=== PATIENT | female | born 1990 | race Caucasian/White ===

== ENCOUNTER 2017-03-26 16:26 | Emergency (ER) | payer OTHER ==
[2017-03-26 17:49] LABS: BASOPHILS % (AUTO) 0.3 %; EOSINOPHILS # (AUTO) 0.1 10^3/uL (0.0-0.7); EOSINOPHILS % (AUTO) 0.9 %; HCT - HEMATOCRIT 39.5 % (37.0-47.0); HGB - HEMOGLOBIN 13.5 g/dL (12.0-16.0); LYMPHOCYTES # (AUTO) 2.6 10^3/uL (1.5-3.5); LYMPHOCYTES % (AUTO) 26.8 %; MEAN CORPUSCULAR HGB CONC 34.3 g/dL (32.0-36.0); MEAN CORPUSCULAR VOLUME 90.4 fL (81.0-99.0); MEAN PLATELET VOLUME 8.4 fL (7.9-10.8); MONOCYTES # (AUTO) 0.6 10^3/uL (0.0-1.0); NEUTROPHILS # (AUTO) 6.3 10^3/uL (1.5-6.6); RED BLOOD COUNT 4.36 10^6/uL (4.20-5.40); RED CELL DISTRIBUTION WIDTH 12.8 % (12.0-15.0); UNCORRECTED WHITE BLOOD COUNT 9.5 x10^3/uL; WHITE BLOOD COUNT 9.5 x10^3/uL (4.8-10.8)
[2017-03-26 17:57] LABS: ALBUMIN/GLOBULIN RATIO 1.8 (1.0-2.2); BILIRUBIN,TOTAL 0.3 mg/dL (0.2-1.0); CALCIUM 9.3 mg/dL (8.5-10.3); CREATININE 0.7 mg/dL (0.4-1.0); POTASSIUM 4.1 mmol/L (3.5-5.0); TOTAL PROTEIN 7.3 g/dL (6.7-8.2)
[2017-03-26] MEDS ORDERED: SODIUM CHLORIDE 0.9% 1,000 ML IV ONE (18:19)
--- NOTE | 2017-03-26 18:19 | ED Physician Documentation ---
History of Present Illness - Stated complaint Stated Complaint: DIZZINESS/5 WKS - Chief complaint Chief Complaint: Neuro - History obtained from History obtained from: Patient, Family - History of Present Illness Timing: How many days ago (several) Pain level max: 0 Pain level now: 0 Improved by: Lying down Worsened by: Standing up - Additonal information Additional information: Patient is a 26-year-old female who is approximately 5 weeks , states that she has been lightheaded and dizzy upon standing, resolves with stopping moving or sitting down. Has been mildly nauseated but no vomiting. No diarrhea. No abdominal pain. No vaginal bleeding. States has not been eating and drinking quite as well as usual. Review of Systems Constitutional: denies: Fever, Chills Ears: denies: Ear pain Nose: denies: Rhinorrhea / runny nose, Congestion Throat: denies: Sore throat Cardiac: denies: Chest pain / pressure Respiratory: denies: Cough GI: denies: Abdominal Pain, Nausea, Vomiting, Diarrhea Skin: denies: Rash Musculoskeletal: denies: Neck pain, Back pain Neurologic: denies: Focal weakness, Numbness, Confused, Altered mental status, Headache PD PAST MEDICAL HISTORY - Past Medical History Past Medical History: No - Past Surgical History Past Surgical History: Yes - Present Medications Home Medications: Ambulatory Orders Medication Instructions Recorded Confirmed Pnv95/Ferrous Fumarate/FA 1 tab PO DAILY 08/21/14 03/26/17 [ Multivitamins Tablet] Progesterone,Micronized 100 mg PO DAILY PM 03/26/17 03/26/17 [Progesterone] - Allergies Allergies/Adverse Reactions: Allergies Allergy/AdvReac Type Severity Reaction Status Date / Time tomatoes Allergy Anaphylaxis Uncoded 03/26/17 16:50 - Living Situation Living Situation: reports: With spouse/s.o. Living Arrangement: reports: At home - Social History Does the pt smoke?: No Smoking Status: Never smoker Does the pt drink ETOH?: No Does the pt have substance abuse?: No - Immunizations Immunizations are current?: No Immunizations: TDAP >10years/unknown PD ED PE NORMAL - Vitals Vital signs reviewed: Yes - General General: Alert and oriented X 3, No acute distress - HEENT HEENT: PERRL, EOMI, Pharynx benign, Other (Dry lips) - Neck Neck: Supple, no meningeal sign - Cardiac Cardiac: RRR - Respiratory Respiratory: No respiratory distress, Clear bilaterally - Abdomen Abdomen: Soft, Non tender, Non distended - Derm Derm: Warm and dry, No rash - Extremities Extremities: No edema, No calf tenderness / cord - Neuro Neuro: Alert and oriented X 3 - Psych Psych: Normal mood, Normal affect Results - Vitals Vitals: Vital Signs - 24 hr 03/26/17 03/26/17 03/26/17 16:43 18:39 18:45 Temperature 36.3 C L 36.2 C L Heart Rate 89 76 Heart Rate [ 97 Sitting] Heart Rate [ 100 Standing] Heart Rate [ 83 Supine] Respiratory 16 15 Rate Blood Pressure 97/60 103/56 L Blood Pressure 118/75 [Sitting] Blood Pressure 116/72 [Standing] Blood Pressure 106/58 L [Supine] O2 Saturation 100 99 03/26/17 19:31 Temperature Heart Rate 77 Heart Rate [ Sitting] Heart Rate [ Standing] Heart Rate [ Supine] Respiratory 18 Rate Blood Pressure 107/58 L Blood Pressure [Sitting] Blood Pressure [Standing] Blood Pressure [Supine] O2 Saturation 100 Oxygen O2 Source Room air - EKG (time done) 1826 Rate: Rate (enter#) (81) Rhythm: NSR [place]: Normal Intervals: Normal SD QRS: Normal Ischemia: Normal ST segments - Labs Labs: Laboratory Tests 03/26/17 03/26/17 03/26/17 17:37 17:37 18:22 WBC 9.5 RBC 4.36 Hgb 13.5 Hct 39.5 MCV 90.4 MCH 31.0 MCHC 34.3 RDW 12.8 Plt Count 212 MPV 8.4 Neut # 6.3 Lymph # 2.6 [place] # 0.6 Eos # 0.1 Baso # 0.0 Absolute Nucleated RBC 0.00 Nucleated RBC % 0.0 Sodium 135 Potassium 4.1 Chloride 104 Carbon Dioxide 24 Anion Gap 7.0 BUN 13 Creatinine 0.7 Estimated GFR (MDRD) 101 Glucose 84 Calcium 9.3 Total Bilirubin 0.3 AST 15 ALT 15 Alkaline Phosphatase 32 L Total Protein 7.3 Albumin 4.7 Globulin 2.6 Albumin/Globulin Ratio 1.8 Lipase 37 Urine Color YELLOW Urine Clarity CLEAR Urine pH 6.0 Ur Specific [place] 1.010 Urine Protein NEGATIVE Urine Glucose (UA) NEGATIVE Urine Ketones NEGATIVE Urine Occult Blood NEGATIVE Urine Nitrite NEGATIVE Urine Bilirubin NEGATIVE Urine Urobilinogen 0.2 (NORMAL) Ur Leukocyte Esterase NEGATIVE Ur Microscopic Review NOT INDICATED Urine Culture Comments NOT INDICATED Urine HCG, Qual POSITIVE PD MEDICAL DECISION MAKING - ED course Complexity details: reviewed results, re-evaluated patient, considered differential, d/w patient, d/w family ED course: Patient is a 26-year-old female, who is approximately 5-1/2 weeks , presents with near syncope upon standing. Has not actually lost consciousness. She appears dehydrated clinically, given IV fluids and feels significantly better. She is able to stand and ambulate without any dizziness. Bedside ultrasound reveals a IUP with a gestational sac of approximately 6 week 1 day, unable to find a heart rate at this time, will follow up with her doctor for a formal ultrasound. Patient counseled regarding signs and symptoms for which I believe and urgent re-evaluation would be necessary. Patient with good understanding of and agreement to plan and is comfortable going home at this time This document was made in part using voice recognition software. While efforts are made to proofread this document, sound alike and grammatical errors may occur. Departure - Departure Disposition: 01 Home, Self Care Clinical Impression: Dehydration Qualifiers: Weeks of gestation: less than 8 weeks Qualified Code(s): Z3A.01 - Less than 8 weeks gestation of Condition: Good Instructions: ED Dehydration Follow-Up: your,doctor in 1 week [Other] Comments: Return if you worsen. Drink plenty of fluids. Discharge Date/Time: 03/26/17 20:24
[2017-03-26 18:55] LABS: BILIRUBIN,URINE NEGATIVE (NEGATIVE)
[2017-03-26 18:58] LABS: HCG UR QUAL POSITIVE; UA CHARGE (STRIP ONLY) YES; UR CULTURE IF IND NOT INDICATED
[2017-03-26 19:31] VITALS: BP 107/58
== END 2017-03-26 20:24 | disposition home or self-care (01) ==
LOC: ED 16:26
DX: O26.891 Other specified pregnancy related conditions, first trimester (principal); E86.0 Dehydration; Z3A.01 Less than 8 weeks gestation of pregnancy
CPT/HCPCS: 36415; 80053; 81001; 81003; 81025; 83690; 85025; 87086; 93005; 96360; 99283; 99284

== ENCOUNTER 2017-04-20 18:23 | Outpatient (CLI) | payer OTHER | END 2017-04-20 18:24 | disposition home or self-care (01) | LOC: LAB 18:23 | PROVIDERS: ATTEND Midwife | DX: O20.0 Threatened abortion (principal) | CPT/HCPCS: 36415; 84144 ==

== ENCOUNTER 2017-11-26 14:27 | Outpatient (CLI) | payer OTHER ==
--- NOTE | 2017-11-26 15:47 | Ultrasound Report ---
Procedure Date: 11/26/2017 Accession Number: [id number] / [id number] Procedure: US - OB Limited CPT Code: FULL RESULT: EXAM: LIMITED OBSTETRICAL ULTRASOUND OB Limited CLINICAL HISTORY: Term gestation, assess MOLLY COMPARISON: None. TECHNIQUE: Real time scanning by the assembler for puller over hand was saved static images reviewed DATING: Established EGA 40 weeks 4 days with GRABIEL 11/22/2017. GENERAL EVALUATION Arita . Cardiac activity: 133 bpm. movement: Visualized. Presentation: Vertex. Placenta: Posterior position. Amniotic fluid: Normal. MOLLY 21.8 cm. MVP 5.9 cm. IMPRESSION: 1. Arita intrauterine in vertex presentation. heart rate 133 BPM. MOLLY 21.8 cm. RADIA
== END 2017-11-26 14:28 | disposition home or self-care (01) ==
LOC: DI 14:27
PROVIDERS: ATTEND Midwife
DX: O48.0 Post-term pregnancy (principal)
CPT/HCPCS: 76815

== ENCOUNTER 2018-02-17 16:56 | Outpatient (CLI) | payer OTHER ==
--- NOTE | 2018-02-18 01:40 | Ultrasound Report ---
Reason: GENERALIZED ABDOMINAL PAIN Procedure Date: 02/17/2018 Accession Number: [id number] / [id number] Procedure: US - Abdomen Limited CPT Code: FULL RESULT: EXAM: ABDOMEN ULTRASOUND LIMITED, ABDOMINAL WALL EXAM DATE: 02/17/2018 05:35 PM. CLINICAL HISTORY: pain. Abdominal rectus diastases. Evaluate for hernia. Pain. COMPARISON: None. TECHNIQUE: Real-time scanning was performed with static images obtained. Images acquired with and without Valsalva. FINDINGS: No mass, adenopathy or collection. No anterior abdominal wall hernia. IMPRESSION: No abdominal wall hernia. RADIA
== END 2018-02-17 16:57 | disposition home or self-care (01) ==
LOC: DI 16:56
PROVIDERS: ATTEND Nurse Practitioner Family
DX: R10.84 Generalized abdominal pain (principal); M62.08 Separation of muscle (nontraumatic), other site
CPT/HCPCS: 76705

== ENCOUNTER 2020-03-21 13:40 | Outpatient (CLI) | payer OTHER ==
--- NOTE | 2020-03-22 12:02 | Ultrasound Report ---
PROCEDURE: Head or Neck Soft Tissue INDICATIONS: NONTOXIC SINGLE THYROID NODULE TECHNIQUE: Real-time scanning was performed of the thyroid gland, with image documentation. COMPARISON: None FINDINGS: Right: Thyroid lobe measures 6.6 x 3.4 x 4.3 cm, and is homogeneous in echotexture. Left: Thyroid lobe measures 4.8 x 1.7 x 1.7 cm, and is homogenous in echotexture. Isthmus: 3 mm thick. Nodule number: One Location: Right lobe Size: 5.6 x 2.6 x 4.0 cm. Composition: Cystic Echogenicity: Anechoic Shape: wider than tall. Margins: Irregular Echogenic foci: None. Total points: 2 ACR TI-RADS category: TI-RADS 2 Nodule number: Two Location: Left mid Size: Less than 0.5 cm. Composition: Cystic Echogenicity: Anechoic Shape: wider than tall. Margins: Smooth Echogenic foci: None Total points: 0 ACR TI-RADS category: TI-RADS 1 IMPRESSION: 1. 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 Based on criteri a outlined below no additional follow-up is recommended. 2. Small less than 5 mm left thyroid cyst with ACR TI-RADS category 1. Based on criteria outlined bel ow no additional follow-up recommended. ACR TI-RADS definitions and recommendations: TI-RADS 1 (benign): 0 points. FNA not needed. TI-RADS 2 (not suspicious): 2 points. FNA not needed. TI-RADS 3 (mildly suspicious): 3 points. ? FNA if 2.5 cm or larger, follow up if 1.5 cm or larger (at 1, 3, and 5 years). TI-RADS 4 (moderately suspicious): 4-6 points. ? FNA if 1.5 cm or larger, follow up if 1 cm or larger (at 1, 2, 3, and 5 years). TI-RADS 5 (highly suspicious): 7 points or more. ? FNA if 1 cm or larger, follow up if 0.5 cm or larger (every year for 5 years). Reviewed by: Nancy Hughes MD, PhD on 03/22/2020 11:01 AM ABHILASH Approved by: Nancy Hughes MD, PhD on 03/22/2020 11:01 AM ABHILASH Station ID: [id number]
== END 2020-03-21 13:41 | disposition home or self-care (01) ==
LOC: DI 13:40
PROVIDERS: ATTEND Nurse Practitioner Family
DX: E04.1 Nontoxic single thyroid nodule (principal)
CPT/HCPCS: 76536

== ENCOUNTER 2020-11-30 15:37 | Emergency (ER) | payer OTHER ==
[2020-11-30 15:50] VITALS: BP 102/69
--- NOTE | 2020-11-30 16:06 | ED Physician Documentation ---
History of Present Illness - Stated complaint Stated Complaint: TROUBLE BREATHING - Chief complaint Chief Complaint: Heent - History obtained from History obtained from: Patient - Additonal information Additional information: This 30-year-old woman has a known benign but fair sized thyroid cyst, she had an ultrasound done in March of last year showing a 5.6 x 2.6 x 4.0 cm right thyroid colloid cyst. She also had a very small left thyroid cyst. She states that may be because of the heat today or some other reason she feels like it is giving her more trouble breathing than usual. It is never been this bad. So has been symptomatic though. Review of Systems Constitutional: reports: Reviewed and negative Eyes: reports: Reviewed and negative Ears: reports: Reviewed and negative Nose: reports: Reviewed and negative Throat: reports: Reviewed and negative Cardiac: reports: Reviewed and negative PD PAST MEDICAL HISTORY - Past Surgical History Past Surgical History: Yes - Present Medications Home Medications: Ambulatory Orders Medication Instructions Recorded Confirmed Pnv95/Ferrous Fumarate/FA 1 tab PO DAILY 08/21/14 03/26/17 [ Multivitamins Tablet] Progesterone, Micronized 100 mg PO DAILY PM 03/26/17 03/26/17 [Progesterone] predniSONE [Deltasone] 20 mg PO [id number] #21 tab 11/30/20 - Allergies Allergies/Adverse Reactions: Allergies Allergy/AdvReac Type Severity Reaction Status Date / Time tomatoes Allergy Anaphylaxis Uncoded 11/30/20 15:50 - Social History Does the pt smoke?: No Smoking Status: Never smoker Does the pt drink ETOH?: No Does the pt have substance abuse?: No - Immunizations Immunizations are current?: No Immunizations: TDAP >10years/unknown PD ED PE NORMAL - Vitals Vital signs reviewed: Yes - General General: Alert and oriented X 3, No acute distress - HEENT HEENT: Other (There is a palpable right anterior lower thyroid cyst that is not tender or red. Her voice and phonation are normal.) - Neck Neck: Supple, no meningeal sign, No bony TTP - Cardiac Cardiac: RRR, No murmur - Respiratory Respiratory: No respiratory distress, Clear bilaterally - Abdomen Abdomen: Non tender - Derm Derm: Normal color, Warm and dry - Extremities Extremities: No edema, No calf tenderness / cord - Neuro Neuro: Alert and oriented X 3, Normal speech Results - Vitals Vitals: Vital Signs - 24 hr 11/30/20 15:44 Temperature 37.1 C Heart Rate 75 Respiratory 14 Rate Blood Pressure 102/69 O2 Saturation 98 Oxygen O2 Source Room air PD MEDICAL DECISION MAKING - ED course ED course: She has no recent weight loss, hair or nail changes to suggest actual thyroid dysfunction. We discussed that there are is a need for ENT follow-up given the symptomatic nature of this but it is not urgent. She is anxious about this but understanding. We discussed potentially a trial of prednisone for the anti- inflammatory effects which she declined. However prior to discharge she changed her mind about the prescription for steroids. Departure - Departure Disposition: Home, Self Care Clinical Impression: Thyroid cyst Condition: Good Record reviewed to determine appropriate education?: Yes Prescriptions: predniSONE [Deltasone] 20 mg PO [id number] #21 tab Comments: As discussed, the [facility] ENT specialist do thyroid surgery. You can call [phone] to schedule an appointment for evaluation. Return for new or worsening symptoms or if you decide you would like to trial the steroids as discussed.
== END 2020-11-30 16:13 | disposition home or self-care (01) ==
LOC: ED 15:37
DX: E04.1 Nontoxic single thyroid nodule (principal)
CPT/HCPCS: 99281; 99283